=== PATIENT | female | born 1960 | race Caucasian/White ===

== ENCOUNTER 2017-07-28 18:44 | Emergency (ER) | payer OTHER ==
[~2017-07-28] VITALS: Ht 167.6 cm; Wt 74.8 kg
[~2017-07-28 18:44] MED LIST: ANALGESIC BALM28 GM TOP; ARTIFICIAL TEA1 EACH OPH; FLUTICASONE PRO16 GM NAS; FLUTICASONE PRO16 GM NASB; HYDROCHLOROTH12.5 M3 PO; NICOTINE PATCH1 EAC3 TOP; OMEPRAZOLE20 M2 PO; PANTOPRAZOLE SO40 M1 PO; PATADAY2.5 ML OPH; PROAIR HFA8.5 GM INH; PROPRANOLOL HCL10 M1 PO; SPIRIVA18 MCG INH; TRAMADOL HCL50 M1 PO; TRAZODONE HCL50 M1 PO; VENTOLIN HFA18 GM INH; VICODIN5-300 PO; VITAMIN D250000 UNIT PO; VITAMIN D31000 UNI2 PO; WELLBUTRIN SR100 M2 PO; ZITHROMAX Z-PA250 M1 PO
[2017-07-28 19:18] LABS: ABSOLUTE BASOPHIL COUNT 0.1 /CUMM (0.0-0.2); ABSOLUTE EOSINOPHIL COUNT 0.1 /CUMM (0.0-0.7); ABSOLUTE GRANULOCYTE CT 4.6 /CUMM (1.4-6.5); ABSOLUTE LYMPH COUNT 4.2 /CUMM (1.2-3.4); ABSOLUTE MONOCYTE COUNT 0.7 /CUMM (0.10-0.60); BASOPHIL % 0.6 % (0.0-2.0); EOSINOPHIL % 1.4 % (0-5); HEMATOCRIT 45.9 % (37-47); MEAN CORPUSCULAR HGB 34.2 PG (27.0-31.0); MEAN CORPUSCULAR HGB CONC 33.6 G/DL (33.0-37.0); MEAN CORPUSCULAR VOLUME 101.9 FL (81.0-99.0); MEAN PLATELET VOLUME 8.6 FL (7.4-10.4); RBC DISTRIBUTION WIDTH 14.6 % (11.5-14.5); RED BLOOD CELL CT 4.51 /CUMM (4.20-5.40); WHITE BLOOD CELL COUNT 9.7 /CUMM (4.8-10.8)
[2017-07-28 19:28] LABS: GRANULOCYTE % 47.6 % (42.2-75.2); PLATELET COUNT 134 /CUMM (130-400)
--- NOTE | 2017-07-28 20:25 | ED GENERAL ADULT ---
See Addendum History of Present Illness General Chief Complaint: ETOH/Drug Related Complaint Stated Complaint: BIBA ETOH Source: patient Exam Limitations: no limitations Vital Signs & Intake/Output Vital Signs & Intake/Output Vital Signs Date Time Temp Pulse Resp B/P B/P Pulse O2 O2 Flow FiO2 Mean Ox Delivery Rate 07/29 0633 98.0 74 18 104/75 99 Room Air 07/29 0130 96.0 62 18 90/50 94 Room Air 07/29 0046 95.0 64 20 96/60 96 Room Air 07/28 2222 64 16 108/72 96 Room Air 07/28 1912 97.1 74 18 112/64 94 Room Air Room Air ED Intake and Output 07/29 0000 07/28 1200 Intake Total 0 Output Total Balance 0 Intake, Oral 0 Patient 165 lb Weight Weight Estimated Measurement Method Allergies Coded Allergies: codeine (Intermediate, NAUSEA 02/28/17) Reconcile Medications Albuterol Sulfate (Ventolin Hfa) 90 MCG HFA.AER.AD 2 PUF INH Q4-6 PRN PRN ASTHMA Bupropion HCl (Wellbutrin Sr) 100 MG TABLET.ER 1 TAB PO Q12H depression Cholecalciferol (Vitamin D3) 1,000 UNIT TABLET 1 TAB PO DAILY supplement Dextran 70/Hypromellose (Artificial Tears) 1 EACH DROPERETTE 2 GTT OPH 4 TIMES /DAY dry eyes Fluticasone Propionate 50 MCG/ACTUATION SPRAY.SUSP 2 SPRAY DOV DAILY PRN ALLERGIES Hydrochlorothiazide 12.5 MG CAPSULE 12.5 MG PO QAM ANKLE EDEMA Methyl Salicylate (Analgesic [place]) 28 GM OINT...G. 1 SHIRLEY TOP Q6P PRN knee pain Nicotine (Nicotine Patch) 21 MG/24 HOUR PATCH.TD24 1 PAT TOP DAILY smoking Olopatadine HCl (Pataday) 0.2 % DROPS 1 GTT OPH DAILY TO RIGHT EYE, REASON UNK (Reported) Omeprazole 20 MG CAPSULE.DR 2 CAP PO DAILY AC gerd Propranolol HCl 10 MG TABLET 1 TAB PO BID tremor Tiotropium [place] (Spiriva) 18 MCG CAP.W.DEV 1 PUF INH DAILY copd Tramadol HCl 50 MG TABLET 50 MG PO Q8 KNEE PAIN Trazodone HCl 50 MG TABLET 1 TAB PO QHS PRN INSOMNIA Triage Note: BIBA FOR +ETOH. EMS STATED THAT PT WAS FOUND SITTING ON A BENCH UNRESPONSIVE OUTSIDE OF AN APARTMENT COMPLEX. PER EMS, THE PT HAS ANSWERED QUESTIONS INTERMITTENTLY AND DID NOT VERBALIZE ANY COMPLAINTS. BG = 91. PT ALERT AND ANSWERING QUESTIONS INTERMITTENTLY AT THIS TIME. PT CRYING INTERMITTENTLY AND STATES "I DON'T KNOW." WHEN ASKED WHAT SHE DRANK. Triage Nurses Notes Reviewed? yes Onset: Gradual Duration: hour(s): Timing: recent history Injury Environment: home Severity: moderate Modifying Factors: Improves With: rest. Associated Symptoms: agitation HPI: 57 yo woman found by police on a park bench, stating that she has been drinking. (Gomez MENDES,Dandre Bailey) Past History Travel History Traveled to [place] past 21 day No Medical History Any Pertinent Medical History? 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 TREMORS EENT: allergies, sinusitis Cardiovascular: MURMUR Respiratory: asthma, COPD, PNEUMONIA 2016 Gastrointestinal: cirrhosis Hepatic: cirrhosis, hepatitis C Renal: NONE Musculoskeletal: rheumatoid arthritis Psychiatric: anxiety, depression Endocrine: NONE Blood Disorders: LOW PLATELETS Cancer(s): NONE [employer]/Reproductive: NONE History of MRSA: No History of VRE: No History of CDIFF: No Surgical History Surgical History: non-contributory Psychosocial History Who do you live with Other (see notes) Services at Home None What is your primary language Panamanian Tobacco Use: Refused to answer Family History Family History, If Any: MOTHER FH: CAD (coronary artery disease) Hx Contributory? No (Gomez MENDES,Dandre Bailey) Review of Systems Review of Systems Constitutional: Reports: no symptoms. EENTM: Reports: no symptoms. Respiratory: Reports: no symptoms. Cardiovascular: Reports: no symptoms. GI: Reports: no symptoms. Genitourinary: Reports: no symptoms. Musculoskeletal: Reports: no symptoms. Skin: Reports: no symptoms. Neurological/Psychological: Reports: no symptoms. Hematologic/Endocrine: Reports: no symptoms. Immunologic/Allergic: Reports: no symptoms. All Other Systems: Reviewed and Negative (Dandre Dyer MD) Physical Exam Physical Exam General Appearance: mild distress, intoxicated, belligerent Head: atraumatic, normal appearance Eyes: Bilateral: normal appearance. Ears, Nose, Throat: normal pharynx, normal ENT inspection Neck: normal inspection, supple, full range of motion Respiratory: normal breath sounds, chest non-tender, no respiratory distress, quiet respiration, lungs clear Cardiovascular: regular rate/rhythm Gastrointestinal: normal bowel sounds, soft, non-tender Back: normal inspection, normal range of motion Extremities: normal inspection, normal capillary refill, normal range of motion, no edema Neurologic/Psych: no motor/sensory deficits, awake, alert, belligerent, agitated , making threatening comments to staff Skin: intact, normal color, warm/dry Core Measures ACS in differential dx? No CVA/TIA Diagnosis: No Sepsis Present: No Sepsis Focused Exam Completed? No (Gomez MENDES,Dandre Bailey) Progress Differential Diagnoses I considered the following diagnoses in my evaluation of the patient: drug abuse , etoh abuse vs other. Plan of Care: Orders Procedure Date/time Status Regular Diet 07/29 B Active URINE DRUGS OF ABUSE 07/28 1910 Complete ETHANOL 07/28 1909 Complete COMPREHENSIVE METABOLIC PANEL 07/28 1909 Complete CBC WITHOUT DIFFERENTIAL 07/28 1909 Complete Laboratory Tests 07/28/176: Urine Opiates Screen < 100, Methadone Screen 49, Barbiturate Screen < 60, Ur Phencyclidine Scrn < 6.00, Amphetamines Screen 303, U Benzodiazepines Scrn < 85, Urine Cocaine Screen < 50, Urine Cannabis Screen < 5.00 07/28/171911: Anion Gap 15, Estimated GFR > 60, BUN/Creatinine Ratio 22.0, Glucose 99, Calcium 8.7, Total Bilirubin 0.8, AST 56 H, ALT 58 H, Alkaline Phosphatase 106, Total Protein 7.9, Albumin 4.1, Globulin 3.8, Albumin/Globulin Ratio 1.1, CBC w Diff NO MAN DIFF REQ, RBC 4.51, MCV 101.9 H, MCH 34.2 H, MCHC 33.6, RDW 14.6 H, MPV 8.6, Gran % 47.6, Lymphocytes % 43.4, Monocytes % 7.0, Eosinophils % 1.4, Basophils % 0.6, Absolute Granulocytes 4.6, Absolute Lymphocytes 4.2 H, Absolute Monocytes 0.7 H, Absolute Eosinophils 0.1, Absolute Basophils 0.1, Serum Alcohol 356.0 Initial ED EKG: none Hand-Off Endorsed To: Sahil Michelle MD Endorsed Time: 0700 Pending: other (sobriety) (Gomez MENDES,Dandre Bailey) Departure Departure Disposition: HOME OR SELF CARE Condition: Stable Clinical Impression Primary Impression: Alcohol intoxication Referrals: Patient Has No Primary Care Dr (PCP/Family) Departure Forms: Customer Survey General Discharge Information (Dandre Dyer MD) Critical Care Note Critical Care Note Critical Care Time: non-applicable (Dandre Dyer MD)
[2017-07-29 06:33] VITALS: BP 104/75
== END 2017-07-29 06:49 ==
LOC: ERH 18:44
PROVIDERS: Emergency Medicine
DX: F10.129 Alcohol abuse with intoxication, unspecified (principal); R45.1 Restlessness and agitation
CPT/HCPCS: 80307; 96372; G0480; J1630